=== PATIENT | female | born 1985 | race Caucasian/White ===

== ENCOUNTER → 2017-02-19 | Outpatient (CLI) | payer BC ==
[~2017-02-19] MED LIST: FERR325T5 PO; IBUP-1427 PO; OXYC-643 PO; PRENTAB26 PO
--- NOTE | 2017-02-19 15:19 | DIAGNOSTIC IMAGING REPORT ---
CHEST 2 VIEWS ROUTINE CLINICAL HISTORY: R68.89 R06.2 R09.89 RALES, WHEEZING, FEVER COMPARISON STUDY: 04/24/2006 FINDINGS: The cardiac and mediastinal contours are normal. There is no evidence of focal pulmonary consolidation. There is no evidence of failure. No pleural effusions are visualized.[ IMPRESSION: No active disease in the chest. Electronically signed by: Jose Sarabia M.D. 02/19/2017 3:18 PM Dictated Date/Time: 02/19/2017 3:18 PM
== END | disposition home or self-care (01) ==
LOC: C.RADPV 14:59
PROVIDERS: ATTEND Physician Assistant
DX: R68.89 Other general symptoms and signs (principal); R06.2 Wheezing; R09.89 Other specified symptoms and signs involving the circulatory and respiratory systems

== ENCOUNTER → 2017-03-09 | Outpatient (CLI) | payer BC | END | disposition home or self-care (01) | LOC: C.PAPS 16:26 | PROVIDERS: ATTEND Obstetrics & Gynecology | DX: N92.0 Excessive and frequent menstruation with regular cycle (principal) ==

== ENCOUNTER → 2017-03-09 | Outpatient (CLI) | payer BC | END | disposition home or self-care (01) | LOC: C.PATHSPEC 15:58 | PROVIDERS: ATTEND Obstetrics & Gynecology | DX: N92.0 Excessive and frequent menstruation with regular cycle (principal) ==

== ENCOUNTER 2017-04-09 05:41 | Observation (INO) | payer BC ==
[2017-04-05 12:58] VITALS: Ht 156.2 cm; Wt 86.0 kg
--- NOTE | 2017-04-05 13:50 | PAT Medication Instructions ---
Service Date Apr 05, 2017. Current Home Medication List Albuterol Hfa (Ventolin Hfa), 1-2 PUFFS INH UD PRN for PRN Calcium Carbonate (Tums), 1 DOSE PO UD PRN for HEARTBURN Fluticasone Propionate (Nasal) (Flonase Allergy Relief), 1 SPRAY CARA UD PRN for Seasonal Allergies Ibuprofen (Motrin), 600 MG PO UD PRN for Pain Methimazole (Methimazole), 1 TAB PO QAM Sumatriptan Succinate (Imitrex), 25 MG PO UD PRN for PRN Medication Instructions For Your Scheduled Surgery -Contact your surgeon for instructions for: Ibuprofen (Motrin), 600 MG PO UD PRN for Pain - Hold the following medications the morning of surgery: Calcium Carbonate (Tums), 1 DOSE PO UD PRN for HEARTBURN - Take the following medications the morning of surgery with a sip of water: Sumatriptan Succinate (Imitrex), 25 MG PO UD PRN for PRN (if needed) Methimazole (Methimazole), 1 TAB PO QAM Fluticasone Propionate (Nasal) (Flonase Allergy Relief), 1 SPRAY CARA UD PRN for Seasonal Allergies (if needed) Albuterol Hfa (Ventolin Hfa), 1-2 PUFFS INH UD PRN for PRN (if needed, and bring with you to the hospital) - Take the following medications as scheduled the night before surgery: Sumatriptan Succinate (Imitrex), 25 MG PO UD PRN for PRN Fluticasone Propionate (Nasal) (Flonase Allergy Relief), 1 SPRAY CARA UD PRN for Seasonal Allergies (if needed) Albuterol Hfa (Ventolin Hfa), 1-2 PUFFS INH UD PRN for PRN (if needed) If you have any questions please call us at [phone] or [phone] or [phone]
[2017-04-05 14:58] LABS: BASO % 0.5 %; BASO ABS # 0.04 K/uL (0-0.2); COMPLETE YES; EOS % 10.1 %; HEMATOCRIT 41.3 % (37-47); IG% 0.3 %; LYMPH % 26.9 %; LYMPH ABS # 2.13 K/uL (1.2-3.4); MEAN CORPUSCULAR HEMOGLOBIN 27.4 pg (25-34); MEAN CORPUSCULAR HGB CONC 32.2 g/dl (32-36); MEAN PLATELET VOLUME 11.2 fL (7.4-10.4); MONO % 5.6 %; NEUT % 56.6 %; PLATELET COUNT 234 K/uL (130-400); RED BLOOD COUNT 4.86 M/uL (4.2-5.4); WHITE BLOOD COUNT 7.92 K/uL (4.8-10.8)
[2017-04-09] VITALS (8 sets, daily range): BP systolic 110–121; BP diastolic 62–79; PULSE 76–97; TEMP 36.4–36.9; O2SAT 92–99
[~2017-04-09] VITALS: Ht 156.2 cm; Wt 86.0 kg
[~2017-04-09 05:41] MED LIST changes: +CALC500C3 PO; -FERR325T5 PO; +FLUT0.15 NAE; -IBUP-1427 PO; +IBUP-1450 PO; +METH10TA6 PO; -OXYC-643 PO; -PRENTAB26 PO; +SUMA25TA12 PO; +VNTHFA/IN INH
[2017-04-09] MEDS ORDERED: LACTATED RINGER'S 1000ML 1,000 ML IV SCH ×3 (06:00→12:00)
[2017-04-09] MEDS ORDERED: CISATRACURIUM BESYLATE IV SOLN 2 MG/ML 10 ML VIAL ONE (06:56)
[2017-04-09] MEDS ORDERED: METHYLENE BLUE 0.5% 10 ML VIAL ONE (06:56)
[2017-04-09] MEDS ORDERED: DEXAMETHASONE SOD INJ 4 MG/ML VIAL ONE (06:56)
[2017-04-09] MEDS ORDERED: BUPIVACAINE 0.5 % 5 MG/1 ML MPF 30ML VIAL ONE (06:56)
[2017-04-09] MEDS ORDERED: SUCCINYLCHOLINE 100MG/5ML SYR IV ONE (06:56)
[2017-04-09] MEDS ORDERED: LIDOCAINE HCL 2% 2 ML VIAL (20MG/ML) ONE (06:56)
[2017-04-09] MEDS ORDERED: PROPOFOL IV EMULSION 10 MG/ML 20 ML VIAL IV ONE (06:56)
[2017-04-09] MEDS ORDERED: ONDANSETRON INJ 2 MG/ML 2 ML VIAL ONE (06:56)
[2017-04-09] MEDS ORDERED: FENTANYL CITRATE INJ 50 MCG/1 ML 2 ML VIAL ONE ×3 (06:57→10:04)
[2017-04-09] MEDS ORDERED: MIDAZOLAM HCL 1 MG/ML 2ML VIAL ONE (06:57)
[2017-04-09] MEDS ORDERED: HYDROmorphone INJ 2 MG/ML SYR/VIAL ONE (06:57)
[2017-04-09] MEDS ORDERED: ACETAMINOPHEN 1000 MG/100 ML IV IV ONE (07:09)
[2017-04-09] MEDS ORDERED: CEFAZOLIN SOD 2000MG/10 ML IV PUSH IV ONE (07:30)
--- NOTE | 2017-04-09 07:32 | History & Physical Bridge Note ---
H&P Re-Evaluation Bridge Note: I have examined the patient, reviewed the History & Physical and in the interval since the performance of the History & Physical I have noted the following changes of clinical significance: Patient's consent form, which was reviewed at length in the office during her pre-op visit and had additional notations for "risk of regret" that I had the patient initial due to her young age, was lost in transmission to hospital. I therefore hand-filled another form in the presence of the patient and her today and had her re-sign. She feels (and he is convinced she sincerely understands risks) that she still absolutely wants definitive treatment by hysterectomy. Consent resigned.
[2017-04-09] MEDS ORDERED: OXYC-57 PO (07:35)
--- NOTE | 2017-04-09 07:35 | Discharge Instructions ---
Discharge Instructions Date of Service Apr 09, 2017. Visit Reason for Visit: Menorrhagia, failed conservative measures and completed childbearing Discharge Discharge Diagnosis / Problem: hysterectomy Discharge Goals Goal(s): Specific goals Activity Recommendations Activity Limitations: per Instructions/Follow-up section Anesthesia . Post Anesthesia Instructions: If you have had General Anesthesia or IV Sedation: * Do not drive today. * Resume driving when surgeon permits. * Do not make important decisions or sign legal documents today. * Call surgeon for: 1. Temperature elevations greater than 101 degrees F. 2. Uncontrollable pain. 3. Excessive bleeding. 4. Persistent nausea and vomiting. 5. Medication intolerance (nausea, vomiting or rash). * For nausea and vomiting use only clear liquids such as: tea, soda, bouillon until nausea subsides, then gradually increase diet as tolerated. * If you have any concerns or questions, call your surgeon's office. If physician is unavailable and it is an emergency, call 911 or go to the nearest emergency room. . Instructions / Follow-Up Instructions / Follow-Up POST OPERATIVE: BOWEL FUNCTION/MEDICATIONS: 1. Constipation pain and discomfort are the most common complaints 5-7 days after surgery. Points 2-6 address the things that can help. 2. Chewing gum can help stimulate the gut and help improve digestion and motility. 3. Milk of Magnesia 1-2 times per day until return of bowel function. 4. Colace is a stool softener that helps. Taking this 2-3 times per day until bowel function returns to normal is highly recommended. 5. Dulcolax is a laxative that may be used if several days have passed without a bowel movement. Alternatively Miralax may be used daily instead. 6. Drink plenty of fluids as this will also reduce constipation. 7. Narcotic pain medications will be prescribed by your physician. They are safe to use and we encourage you to use them. If you are not allergic, ibuprofen will also be prescribed. Many patients will be able to transition off of the narcotic medications to ibuprofen by postoperative day 3. ACTIVITY RECOMMENDATIONS: 1. Get plenty of rest and listen to your body. If you are tired, take a nap. 2. You may shower, but do not take a tub bath until you see your doctor at the 2 week post operative visit. 3. Absolutely NO intercourse and nothing in the vagina until you are examined by your doctor at the 6 week visit. At that visit it will be determined when such activities can be resumed. This can range from 6-12 weeks after your surgery depending on healing time. 4. The main physical activity in the first week should be walking. By the second week you can slowly increase activity. There are no limits on walking up and down stairs. 5. Do not lift more than 5-10 lbs for 4 weeks. Remember the "one-handed rule", i.e. if you can lift something with only one hand it's likely okay. 6. Minimize steam flattener like vacuuming and exercising for 4 weeks. "Overdoing it" can lead to incisions not healing, pain and vaginal bleeding , so again, listen to your body. 7. Driving can be resumed when you feel able. Do not drive within 24 hours of taking a narcotic medication. EXPECTATIONS: 1. Vaginal spotting, bleeding and discharge are common after surgery. There may even be an odor to the discharge which is often related to sutures used in the vagina. If you experience heavy vaginal bleeding, call the office number day or night [phone]. 2. Bladder discomfort is common after surgery from the catheter. This usually resolves in 1-2 weeks. 3. By the end of the 3rd or 4th week you should be feeling much better. It may take up to 6 weeks for your energy levels to return to normal. 4. Narcotic medications have side effects such as: dizziness, headache, nausea and/or vomiting. If you suspect your pain medication is causing problems, call our office and we may be able to prescribe an alternate medication. 5. The skin incisions are often covered with a liquid bandage. This will gradually peel off over time. CALL THE OFFICE IF YOU HAVE ANY OF THE FOLLOWIN. Temperature of 101 degrees or higher. 2. Severe abdominal or pelvic pain not relieved by pain medication. 3. Persistent nausea or vomiting. 4. Increased pain with urination or difficulty urinating. 5. Bright red bleeding that soaks more than 1 pad per hour. CONTACT PHONE NUMBERS: Main Office: [phone] Surgical Nurse: [phone] extension [phone] FOLLOW-UP: Post-Operative Appointments: * Individual instructions will have been given about the timing of your first examination, but this is usually at the end of the second week home. * You will need to call the office at soon after discharge to make the appointment for your post-op check-up if it has not already been scheduled. * Additional information regarding activity, sexual intercourse and when to return to work will be given at this appointment. WE WISH YOU A SPEEDY RECOVERY! Diet Recommendations Recommended Home Diet: resume previous diet Pending Studies Studies pending at discharge: no Medical Emergencies . Who to Call and When: Medical Emergencies: If at any time you feel your situation is an emergency, please call 911 immediately. . Non-Emergent Contact Non-Emergency issues call your: Primary Care Provider . . "Provider Documentation" section prepared by Nataly Lewis. . [place] Drug Monitoring Program Search Results: no issues identified
[2017-04-09] MEDS ORDERED: ESMOLOL HCL 10 MG/ML 10 ML VIAL ONE (08:25)
[2017-04-09] MEDS ORDERED: FLUMAZENIL 0.1 MG/1 ML 10 ML VIAL IV PRN (09:00)
[2017-04-09] MEDS ORDERED: PROMETHAZINE HCL INJ 12.5 MG in SODIUM CHLORIDE 0.9% 50ML 50 ML IV PRN ×2 (09:00→10:00)
[2017-04-09] MEDS ORDERED: ONDANSETRON INJ 2 MG/ML 2 ML VIAL IV PRN ×2 (09:00→10:00)
[2017-04-09] MEDS ORDERED: ATROPINE SULFATE 0.1 MG/ML 5ML SYR IV PRN (09:00)
[2017-04-09] MEDS ORDERED: EpHEDrine SULFATE INJ 50 MG/ML AMP IV PRN (09:00)
[2017-04-09] MEDS ORDERED: NALOXONE HCL 0.4 MG/1 ML VIAL/CARP IV PRN (09:00)
[2017-04-09] MEDS ORDERED: TISSEEL FIBRIN SEALANT 4ML TOP ONE (09:05)
[2017-04-09] MEDS ORDERED: NEOSTIGMINE METHYLSULFATE 5 MG/5 ML SYR ONE (09:26)
[2017-04-09] MEDS ORDERED: GLYCOPYRROLATE INJ 0.2 MG/ML VIAL ONE (09:26)
[2017-04-09] MEDS ORDERED: KETOROLAC TROMETHAMINE 30 MG/ML VIAL ONE (09:37)
--- NOTE | 2017-04-09 09:52 | [facility] Post Operative Brief Note ---
Immediate Operative Summary Operative Date Apr 09, 2017. Pre-Operative Diagnosis Menorrhagia, failed conservative measures, completed childbearing with self and partner previously surgically sterilized, three prior sections Post-Operative Diagnosis Same Procedure(s) Performed Total Laparoscopic Hysterectomy and bilateral salpingectomy with robotic assist, cystoscopy Surgeon Dr. Nataly Lewis Elevator Serviceman Surgeon(s) None Estimated Blood Loss 5 mL Findings Normal appearing tubes with evidence of prior ligation, uterus normal, ovaries normal. Significant anterior uterine adhesions c/w three prior cesareans. Specimens Permanent specimens A: Uterus, cervix, and bilateral fallopian tubes Complication(s) None Disposition Recovery Room / PACU
[2017-04-09] MEDS ORDERED: ETOMIDATE 2 MG/ML 20 ML VIAL IV ONE (09:54)
[2017-04-09] MEDS ORDERED: SIMETHICONE 80 MG CHEW PO PRN (10:00)
[2017-04-09] MEDS ORDERED: MEPERIDINE HCL 50 MG/ML CARP IV PRN ×2 (10:00)
[2017-04-09] MEDS ORDERED: ACETAMINOPHEN 325 MG TAB PO PRN (10:00)
[2017-04-09] MEDS ORDERED: OXYCODONE/ACETAMINOPHEN 5-325 TAB PO PRN (10:00)
[2017-04-09] MEDS ORDERED: PROMETHAZINE HCL INJ 25 MG in SODIUM CHLORIDE 0.9% 50ML 50 ML IV PRN (10:00)
[2017-04-09] MEDS ORDERED: KETOROLAC TROMETHAMINE 30 MG/ML VIAL IV. PRN (10:00)
[2017-04-09] MEDS: HYDROmorphone INJ 1 MG/ML SYR IV PRN ×2 (10:28→10:33)
--- NOTE | 2017-04-09 10:44 | Anesthesiology Progress Note ---
Anesthesia Post Op Note Date & Time Apr 09, 2017 at 10:44 Vital Signs Pain Intensity: 8 Vital Signs Past 12 Hours Date Time Temp Pulse Resp B/P (MAP) Pulse Ox O2 Delivery O2 Flow Rate FiO2 04/09/17 10:35 85 16 118/76 97 Nasal Cannula 2 04/09/17 10:25 68 16 122/80 99 Nasal Cannula 2 04/09/17 10:15 74 16 134/86 96 Oxymask 3 04/09/17 10:05 96 16 127/86 96 Oxymask 5 04/09/17 09:58 36.1 96 14 135/81 96 Oxymask 10 04/09/17 06:38 36.8 83 20 110/62 (78) 99 Room Air Notes Mental Status: alert / awake / arousable, participated in evaluation Pt Amnestic to Procedure: Yes Nausea / Vomiting: adequately controlled Pain: adequately controlled Airway Patency, RR, SpO2: stable & adequate BP & HR: stable & adequate Hydration State: stable & adequate Anesthetic Complications: no major complications apparent
--- NOTE | 2017-04-09 10:49 | OPERATIVE REPORT ---
DATE OF OPERATION: 04/09/2017 PREOPERATIVE DIAGNOSES: 1. Menorrhagia. 2. Failed conservative measures. 3. Completed childbearing with self and partner previously surgically sterilized. 4. Three prior sections. POSTOPERATIVE DIAGNOSES: Same. PROCEDURE: Total laparoscopic hysterectomy and bilateral salpingectomy with robotic assist and cystoscopy. SURGEON: Dr. Lewis. CIGARETTE LIGHTER REPAIRER: None. ESTIMATED BLOOD LOSS: 25 mL. FINDINGS: Normal appearing tubes with evidence of prior ligation. Uterus, normal. Ovaries, normal. Significant anterior uterine adhesions consistent with 3 prior cesareans. SPECIMENS: Uterus, cervix and bilateral fallopian tubes in single specimen. COMPLICATIONS: None. DISPOSITION: Stable to the recovery room. DESCRIPTION OF PROCEDURE: Evangelina is a 31-year-old G3, P3 who was previously counseled on multiple occasions in the office regarding her complaints of menorrhagia. She has of note undergone a full battery of more conservative measures and has found none of them to be satisfactory. In addition, she and her partner are both sterilized and certain that they are done childbearing. She therefore requested despite her young age, but she be allowed to proceed to definitive treatment via total laparoscopic hysterectomy and she presented today for that purpose. She was brought to the operating room, placed in the dorsal lithotomy position, prepped and draped in standard sterile fashion and a hard time-out was taken prior to proceeding. A Conklin catheter was placed as well as a [employer] uterine manipulator. Attention was then turned to the abdomen, where an umbilical entry was made in an optical manner without complication. The abdomen was insufflated. Right and left lower quadrant ports were placed under direct visualization and the robot was docked. Please note, immediately after optical entry, the patient was placed in steep Trendelenburg position, allowing excellent visualization of the pelvic organs. Once the robot was docked, I began operating. The uterus was noted to be significantly adhered to the anterior abdominal wall, which was consistent with the expectation based on 3 prior sections. Her ovaries appeared normal and the tubes bilaterally showed evidence of ligation. The right tube was dissected free of the mesosalpinx up to the uterine cornu. The uteroovarian ligament was ligated and divided. The round ligament was ligated and divided. Dissection began on this side from the round ligament down towards the area, where the bladder flap would be created. Of note, this area was significantly adhesed and dissection proceeded as far as I was able to clearly identify the plane between the uterus and the anterior abdominal wall. We dissected from where the plane was easily visible and down into the areas, where it was less visible with a combination of sharp and blunt dissection. Once I felt we had made approximately 50% of the bladder flap, we then turned attention to the other side. The fallopian tube was again dissected off the mesosalpinx. At this time on the left side, the left uteroovarian ligament was ligated and divided and the round ligament was ligated and divided. On the left side, the scar tissue was significantly more prominent and the round ligament was actually essentially included in the adhesions from the vesicouterine fold. Dissection was then carefully begun, creating the plane between the uterus and the anterior abdominal wall, being careful to avoid bladder injury by maintaining a sharp and blunt dissection to identify and then separate things all along their natural planes. This dissection process was essentially continued, gradually working from one side and then the other until the bladder had been completely mobilized free of the entire notably long cervix. The uterine arteries were then ligated and divided on each side and the colpotomy was completed in a circumferential manner. Uterus, cervix and bilateral fallopian tubes were then delivered through the vagina en bloc. A glove was placed in the vagina to maintain pneumoperitoneum. A lap sponge was briefly introduced through the vagina into the pelvic cavity to allow for blotting and identification of any small bleeders, which were coagulated as well as to sweep out any clot and debris in the cul-de-sac. The lap sponge having been utilized in this manner was then extracted through the vagina and a glove was replaced. The vaginal cuff was then closed using a V-Loc suture in a running nonlocked manner. V-Loc tail and needle were then retrieved through the robotic port using a needle [employer] company flatbed driver. Suction irrigation was begun briefly carried out, ensuring good hemostasis at all the operative sites. A Tisseel application was then performed throughout the bed of the pelvis, where the dissection from scar tissue had been performed. All the hemostasis had already been demonstrated. These areas received 10 application of Tisseel out of an abundance of caution. Please note that both at the beginning of the procedure and again at the end of the procedure, the ureters were examined and seen to be peristalsing normally along their entire course. At this point, the robot was removed and cystoscopy proceeded after administration of methylene blue dye. Cystoscopy demonstrated an intact bladder dome. No evidence of bladder injury along any portion after examination of the full bladder and jets of blue stained dye from each ureteral orifice. Cystoscopy was then completed and the bladder was drained. Attention was turned to the abdomen, where the gas was allowed to escape and ports were removed. The umbilical incision was closed with a UR-6 at the fascial layer and all 3 incisions were closed with 4-0 Monocryl at the skin surface as well as then dressed with Dermabond. At the completion of this closure, the patient's procedure was considered completed. The vagina was checked and all instruments had been removed. EBL was felt to be 25 mL. Urine output is approximately 100 mL of clear yellow. The patient is being transferred in stable condition to the recovery room. I attest to the content of the Intraoperative Record and any orders documented therein. Any exceptions are noted below. MTDD
[2017-04-09] MEDS ORDERED: IV FLUIDS COMPLETED PRN (11:45)
[2017-04-09] MEDS: IBUPROFEN 600 MG TAB PO PRN ×2 (12:40→16:42)
[2017-04-09] MEDS: OXYCODONE/ACETAMINOPHEN 5-325 TAB PO PRN ×2 (12:40→16:42)
[2017-04-09] MEDS ORDERED: DOCUSATE SODIUM 100 MG CAP PO SCH (21:00)
[2017-04-10] MEDS ORDERED: CEFAZOLIN IV 2,000 MG in DEXTROSE 5% 50ML 50 ML IV SCH (06:00)
== END 2017-04-09 18:10 | disposition home or self-care (01) ==
LOC: C.ACU 05:41 → C.MS4N 06:20 → ENRESERV 10:28
PROVIDERS: ADMIT Obstetrics & Gynecology; ATTEND Obstetrics & Gynecology
DX: N92.0 Excessive and frequent menstruation with regular cycle (principal); E03.9 Hypothyroidism, unspecified; J45.909 Unspecified asthma, uncomplicated; M19.90 Unspecified osteoarthritis, unspecified site; E66.9 Obesity, unspecified; F17.200 Nicotine dependence, unspecified, uncomplicated; Z88.5 Allergy status to narcotic agent; Z90.89 Acquired absence of other organs; Z91.040 Latex allergy status; Z68.35 Body mass index [BMI] 35.0-35.9, adult